=== PATIENT | female | born 1995 ===

== ENCOUNTER 2018-02-24 19:17 | Outpatient (CLI) | payer BC ==
[~2018-02-24] VITALS: Ht 165.1 cm; Wt 100.0 kg
[2018-02-24 19:40] VITALS: BP 141/77; Ht 165.1 cm; Wt 100.0 kg
[2018-02-25] LABS: HCG URINE NEGATIVE (NEGATIVE)
--- NOTE | 2018-02-25 00:45 | NUR ---
PATIENT ARRIVED TO FLOOR. PATIENT GOT OFF GURNEY AND WALKED TO BED. PATIENT ALERT AND ORIENTED. RESPIRATIONS ARE EVEN AND UNLABORED. PATIENT VERBLAIZED NO NEEDS AT THIS TIME. NO S/S OF DISTRESS. NO C/O PAIN. CALL LIGHT WITHIN REACH.
--- NOTE | 2018-02-25 02:14 | NUR ---
PATIENT ALERT AND ORIENTED. RESPIRATIONS ARE EVEN AND UNLABORED. NO S/S OF DISTRESS. NO C/O PAIN. PATIENT IV REMOVED AND INTACT. WENT OVER DISCHARGE INSTRUCTIONS.
== END 2018-02-25 02:19 | disposition home or self-care (01) ==
LOC: D.ER 19:17 → D.OPS 19:17 → D.M2 02-25 00:46 → D.OPS 02-25 02:19
PROVIDERS: Family Medicine
DX: K22.2 Esophageal obstruction (principal); K21.9 Gastro-esophageal reflux disease without esophagitis